=== PATIENT | male | born 1980 | race Two or more races ===

== ENCOUNTER 2018-03-30 08:44 | Inpatient (IN) | payer OTHER ==
[2018-03-30 09:28] VITALS: BMI 31.1
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
[2018-03-30] MEDS ORDERED: MAGNESIUM CITRATE 300 ML BOTTLE PO PRN (12:07)
[2018-03-30] MEDS ORDERED: P-EPHED 60MG/TRIPROLIDI 2.5MG TABLET PO PRN (12:07)
[2018-03-30] MEDS ORDERED: NICOTINE POLACRILEX 2 MG GUM BC PRN (12:07)
[2018-03-30] MEDS ORDERED: LOPERAMIDE HCL 2 MG CAPSULE PO PRN (12:07)
[2018-03-30] MEDS ORDERED: chlordiazePOXIDE HCL 25 MG CAPSULE PO PRN (12:07)
[2018-03-30] MEDS ORDERED: ACETAMINOPHEN 325 MG TABLET (FP) PO PRN (12:07)
[2018-03-30] MEDS ORDERED: MAG HYDROX/AL HYDROX/SIMETH 30 ML UNIT-DOSE CUP PO PRN (12:07)
[2018-03-30] MEDS ORDERED: MAGNESIUM HYDROX 2400MG/30ML ORAL SUSPENSION 30 ML CUP PO PRN (12:07)
[2018-03-30] MEDS ORDERED: MENTHOL/PHENOL 1 EACH UD MM PRN (12:07)
[2018-03-30] MEDS ORDERED: guaiFENesin/D-METHORPHAN HB 10 ML UNIT-DOSE CUPS PO PRN (12:07)
[2018-03-30] MEDS: RANITIDINE HCL 150 MG TABLET (FP) PO SCH ×2 (13:26→22:04)
[2018-03-30] MEDS: NICOTINE 14 MG/24 HOURS TOPICAL PATCH TD SCH (13:26)
[2018-03-30 14:29] LABS: URINE APPEARANCE CLEAR; URINE BILIRUBIN NEGATIVE (<2.0 mg/dL); URINE COLOR YELLOW; URINE GLUCOSE (UA) NEGATIVE (NEGATIVE); URINE KETONE 1+ (NEGATIVE); URINE LEUK ESTERASE NEGATIVE (NEGATIVE); URINE NITRITE NEGATIVE (NEGATIVE); URINE PROTEIN NEGATIVE (NEGATIVE); URINE UROBILINOGEN NEGATIVE mg/dL (0.2-1.0)
[2018-03-30] MEDS: chlordiazePOXIDE HCL 25 MG CAPSULE PO SCH ×2 (18:22→22:04)
[2018-03-30] MEDS: THIAMINE HCL 100 MG TABLET (FP) PO SCH (22:04)
[2018-03-30] MEDS: MELATONIN 5 MG TABLETS PO PRN (22:05)
[2018-03-31] MEDS: chlordiazePOXIDE HCL 25 MG CAPSULE PO SCH ×4 (06:13→22:08)
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
[2018-03-31 10:14] LABS: HEMOGLOBIN 11.5 GM/dL (11.7-16.9); MCH 25.7 pg (25.7-33.7); MCHC 32.8 g/dl (32.0-35.9); MEAN CELL VOLUME 78.3 fl (80-96); MEAN PLT VOLUME 9.8 fl (7.5-11.1); PLATELET COUNT 204 K/MM3 (134-434); RBC 4.48 M/mm3 (4.00-5.60); RDW 15.8 % (11.9-15.9); WHITE BLOOD COUNT 9.2 K/mm3 (4.0-10.0)
[2018-03-31] MEDS: RANITIDINE HCL 150 MG TABLET (FP) PO SCH ×2 (10:40→22:08)
[2018-03-31] MEDS: PRENATAL VITAMINS W/ FOLIC ACID TABLET (FP) PO SCH (10:40)
[2018-03-31] MEDS: NICOTINE 14 MG/24 HOURS TOPICAL PATCH TD SCH (10:41)
[2018-03-31] MEDS: risperiDONE 1 MG TABLET (FP) PO SCH ×2 (10:41→22:08)
--- NOTE | 2018-03-31 10:43 | PN ---
[facility] CIWA - CIWA Score Nausea/Vomitin-No Nausea/No Vomiting Muscle Tremors: 4-Moderate,w/Arms Extend Anxiety: 4-Mod. Anxious/Guarded Agitation: 4-Moderately Restless Paroxysmal Sweats: 1-Minimal Palms Moist Orientation: 0-Oriented Tacttile Disturbances: 0-None Auditory Disturbances: 0-None Visual Disturbances: 0-None Headache: 0-None Present CIWA-Ar Total Score: 13 S Progress Note (SOAP) Subjective: ANXIETY,FATIGUE. Objective: 03/31/18 10:42 Vital Signs 03/31/18 03/31/18 03/31/18 03:30 06:35 09:43 Temperature 97.2 F L 97.0 F L Pulse Rate 67 72 Respiratory 18 18 20 Rate Blood Pressure 100/68 118/74 Laboratory Tests 03/30/18 03/30/18 03/31/18 13:00 13:00 06:00 WBC 9.2 RBC 4.48 Hgb 11.5 L Hct 35.0 L MCV 78.3 L MCH 25.7 MCHC 32.8 RDW 15.8 Plt Count 204 MPV 9.8 Urine Color Yellow Urine Appearance Clear Urine pH 5.0 Ur Specific [place] 1.028 Urine Protein Negative Urine Glucose (UA) Negative Urine Ketones 1+ H Urine Blood Negative Urine Nitrite Negative Urine Bilirubin Negative Urine Urobilinogen Negative Ur Leukocyte Esterase Negative HIV 1&2 Antibody Screen Negative HIV P24 Antigen Negative OTHER LABS PENDING Assessment: 03/31/18 10:42 WITHDRAWAL SX Plan: CONTINUE DETOX
[2018-03-31 10:51] LABS: CHLORIDE 105 mmol/L (98-107); POTASSIUM 3.9 mmol/L (3.5-5.1); SODIUM 139 mmol/L (136-145)
[2018-03-31 11:17] LABS: ALK PHOS 84 U/L (45-117); ANION GAP 9 (8-16); BILIRUBIN,TOTAL 0.6 mg/dL (0.2-1.0); BLOOD UREA NITROGEN 18 mg/dL (7-18); CALCIUM 8.9 mg/dL (8.5-10.1); CO2 25 mmol/L (21-32); CREATININE 1.1 mg/dL (0.7-1.3); GLUCOSE,RANDOM 83 mg/dL (74-106); SGOT/AST 21 U/L (15-37); SGPT/ALT 24 U/L (12-78); TOT PROT 7.8 g/dl (6.4-8.2)
[2018-03-31] MEDS ORDERED: PNEUMOCOCCAL 23 VACCINE 0.5 ML VIAL IM ONE (12:00)
[2018-03-31] MEDS ORDERED: PNEUMOC 13-VAL CONJ-DIP CRM/PF 0.5 ML DISP.SYRIN IM ONE (12:00)
--- NOTE | 2018-03-31 14:27 | EKG ---
Test Reason : Blood Pressure : / mmHG Vent. Rate : 079 BPM Atrial Rate : 079 BPM P-R Int : 170 ms QRS Dur : 084 ms QT Int : 396 ms P-R-T Axes : 074 058 054 degrees QTc Int : 454 ms POOR DATA QUALITY, INTERPRETATION MAY BE ADVERSELY AFFECTED NORMAL SINUS RHYTHM NORMAL ECG NO PREVIOUS ECGS AVAILABLE Confirmed by SHEA JOHNSON MD ([id number]) on 03/31/2018 2:27:22 PM Referred By: Confirmed By:SHEA JOHNSON MD
[2018-03-31] MEDS: THIAMINE HCL 100 MG TABLET (FP) PO SCH (22:07)
[2018-03-31] MEDS: BENZTROPINE MESYLATE 1 MG TABLET (FP) PO SCH (22:08)
[2018-03-31] MEDS: traZODone HCL 50 MG TABLET (FP) PO SCH (22:08)
[2018-03-31] MEDS: DIVALPROEX SODIUM 500 MG TABLET E.C. PO SCH (22:08)
[2018-04-01] MEDS: chlordiazePOXIDE HCL 25 MG CAPSULE PO SCH ×2 (06:27→11:39)
[2018-04-01] MEDS: PRENATAL VITAMINS W/ FOLIC ACID TABLET (FP) PO SCH (11:39)
[2018-04-01] MEDS: RANITIDINE HCL 150 MG TABLET (FP) PO SCH ×2 (11:39→22:11)
[2018-04-01] MEDS: risperiDONE 1 MG TABLET (FP) PO SCH ×2 (11:39→22:11)
[2018-04-01] MEDS: NICOTINE 14 MG/24 HOURS TOPICAL PATCH TD SCH (11:39)
--- NOTE | 2018-04-01 11:43 | PN ---
S CIWA - CIWA Score Nausea/Vomitin-No Nausea/No Vomiting Muscle Tremors: 3 Anxiety: 4-Mod. Anxious/Guarded Agitation: 3 Paroxysmal Sweats: 1-Minimal Palms Moist Orientation: 0-Oriented Tacttile Disturbances: 0-None Auditory Disturbances: 0-None Visual Disturbances: 0-None Headache: 0-None Present CIWA-Ar Total Score: 11 BHS Progress Note (SOAP) Subjective: DECREASED ANXIETY,TREMORS,SWEATS. DETOX PROCEEDING PER PROTOCOL. Objective: 04/01/18 11:43 Vital Signs 04/01/18 04/01/18 06:16 09:08 Temperature 97.7 F 96.9 F L Pulse Rate 59 L 64 Respiratory 18 16 Rate Blood Pressure 101/57 96/90 Laboratory Tests 03/30/18 03/30/18 03/31/18 13:00 13:00 06:00 WBC 9.2 RBC 4.48 Hgb 11.5 L Hct 35.0 L MCV 78.3 L MCH 25.7 MCHC 32.8 RDW 15.8 Plt Count 204 MPV 9.8 Sodium Potassium Chloride Carbon Dioxide Anion Gap BUN Creatinine Creat Clearance w eGFR Random Glucose Calcium Total Bilirubin AST ALT Alkaline Phosphatase Total Protein Albumin Urine Color Yellow Urine Appearance Clear Urine pH 5.0 Ur Specific [place] 1.028 Urine Protein Negative Urine Glucose (UA) Negative Urine Ketones 1+ H Urine Blood Negative Urine Nitrite Negative Urine Bilirubin Negative Urine Urobilinogen Negative Ur Leukocyte Esterase Negative RPR Titer HIV 1&2 Antibody Screen Negative HIV P24 Antigen Negative 03/31/18 03/31/18 06:00 06:00 WBC RBC Hgb Hct MCV MCH MCHC RDW Plt Count MPV Sodium 139 Potassium 3.9 Chloride 105 Carbon Dioxide 25 Anion Gap 9 BUN 18 Creatinine 1.1 Creat Clearance w eGFR > 60 Random Glucose 83 Calcium 8.9 Total Bilirubin 0.6 AST 21 ALT 24 Alkaline Phosphatase 84 Total Protein 7.8 Albumin 4.0 Urine Color Urine Appearance Urine pH Ur Specific [place] Urine Protein Urine Glucose (UA) Urine Ketones Urine Blood Urine Nitrite Urine Bilirubin Urine Urobilinogen Ur Leukocyte Esterase RPR Titer Nonreactive HIV 1&2 Antibody Screen HIV P24 Antigen Assessment: 04/01/18 11:43 WITHDRAWAL SX Plan: CONTINUE DETOX
[2018-04-01] MEDS: chlordiazePOXIDE 5 MG CAPSULE PO SCH ×2 (17:27→22:11)
[2018-04-01] MEDS: BENZTROPINE MESYLATE 1 MG TABLET (FP) PO SCH (22:11)
[2018-04-01] MEDS: traZODone HCL 50 MG TABLET (FP) PO SCH (22:11)
[2018-04-01] MEDS: THIAMINE HCL 100 MG TABLET (FP) PO SCH (22:11)
[2018-04-01] MEDS: DIVALPROEX SODIUM 500 MG TABLET E.C. PO SCH (22:11)
[2018-04-02] MEDS: chlordiazePOXIDE 5 MG CAPSULE PO SCH ×2 (05:49→11:14)
--- NOTE | 2018-04-02 10:22 | PN ---
[facility] Progress Note Note: Psychiatry Attending's note : Called to issue scripts. Discharge imminent. Chart reviewed. cable swager Adela's note : appreciated. Met with patient to discuss informed consent. Labs revisited.Medicated are well tolerated. Mr Powell is made aware of side-effects. In particular : Priapism,abnormal involuntary movements,anemia blood dyscrasias,sexual dysfunction,gynecomastia galactorrhea,dyskinesias,blurred vision,constipation urinary hesitancy,weight gain,hair loss and liver dysfunction. Benefits revisited with the patient as well.Consent (verbal) : given. Scripts are electronically sent to [facility] for : Depakote 500 mg po hs Risperdal 1 mg po bid Cogentin 1 mg po hs Trazodone 50 mg po hs Noted VA level = >3.0 Normal CBC,LFTS. Patient is at his baseline.
[2018-04-02] MEDS: RANITIDINE HCL 150 MG TABLET (FP) PO SCH ×2 (11:14→22:22)
[2018-04-02] MEDS: NICOTINE 14 MG/24 HOURS TOPICAL PATCH TD SCH (11:14)
[2018-04-02] MEDS: risperiDONE 1 MG TABLET (FP) PO SCH ×2 (11:14→22:23)
[2018-04-02] MEDS: PRENATAL VITAMINS W/ FOLIC ACID TABLET (FP) PO SCH (11:14)
--- NOTE | 2018-04-02 17:07 | PN ---
BHS Progress Note (SOAP) Subjective: Fatigue, Anxious. Objective: PATIENT A & O X 3. NO ACUTE DISTRESS. 04/02/18 17:06 Vital Signs Temperature 97.5 F L 04/02/18 14:43 Pulse Rate 78 04/02/18 14:43 Respiratory Rate 18 04/02/18 14:43 Blood Pressure 112/73 04/02/18 14:43 O2 Sat by Pulse Oximetry (%) Laboratory Tests 03/30/18 03/30/18 03/31/18 13:00 13:00 06:00 WBC 9.2 RBC 4.48 Hgb 11.5 L Hct 35.0 L MCV 78.3 L MCH 25.7 MCHC 32.8 RDW 15.8 Plt Count 204 MPV 9.8 Sodium Potassium Chloride Carbon Dioxide Anion Gap BUN Creatinine Creat Clearance w eGFR Random Glucose Calcium Total Bilirubin AST ALT Alkaline Phosphatase Total Protein Albumin Urine Color Yellow Urine Appearance Clear Urine pH 5.0 Ur Specific [place] 1.028 Urine Protein Negative Urine Glucose (UA) Negative Urine Ketones 1+ H Urine Blood Negative Urine Nitrite Negative Urine Bilirubin Negative Urine Urobilinogen Negative Ur Leukocyte Esterase Negative Valproic Acid RPR Titer HIV 1&2 Antibody Screen Negative HIV P24 Antigen Negative 03/31/18 03/31/18 04/01/18 06:00 06:00 06:00 WBC RBC Hgb Hct MCV MCH MCHC RDW Plt Count MPV Sodium 139 Potassium 3.9 Chloride 105 Carbon Dioxide 25 Anion Gap 9 BUN 18 Creatinine 1.1 Creat Clearance w eGFR > 60 Random Glucose 83 Calcium 8.9 Total Bilirubin 0.6 AST 21 ALT 24 Alkaline Phosphatase 84 Total Protein 7.8 Albumin 4.0 Urine Color Urine Appearance Urine pH Ur Specific [place] Urine Protein Urine Glucose (UA) Urine Ketones Urine Blood Urine Nitrite Urine Bilirubin Urine Urobilinogen Ur Leukocyte Esterase Valproic Acid < 3.0 L RPR Titer Nonreactive HIV 1&2 Antibody Screen HIV P24 Antigen LABS NOTED. Assessment: 04/02/18 17:06 WITHDRAWAL SYMPTOMS. Plan: CONTINUE DETOX.
[2018-04-02] MEDS: chlordiazePOXIDE HCL 10 MG CAPSULE PO SCH ×2 (17:15→22:22)
[2018-04-02] MEDS: DIVALPROEX SODIUM 500 MG TABLET E.C. PO SCH (22:22)
[2018-04-02] MEDS: THIAMINE HCL 100 MG TABLET (FP) PO SCH (22:22)
[2018-04-02] MEDS: BENZTROPINE MESYLATE 1 MG TABLET (FP) PO SCH (22:22)
[2018-04-02] MEDS: traZODone HCL 50 MG TABLET (FP) PO SCH (22:23)
[2018-04-02] MEDS: MELATONIN 5 MG TABLETS PO PRN (22:25)
[2018-04-03] MEDS: chlordiazePOXIDE HCL 10 MG CAPSULE PO SCH (05:21)
[2018-04-03 07:00] VITALS: BP 98/52; PULSE 64; TEMP 97.5
--- NOTE | 2018-04-03 08:47 | PN ---
BHS Progress Note (SOAP) Subjective: pt without complaints- going to rehab today Objective: 04/03/18 08:46 CBC, BMP 03/31/18 06:00 03/31/18 06:00 Vital Signs 04/03/18 04/03/18 04/03/18 03:30 06:30 06:59 Temperature 97.5 F L Pulse Rate 64 Respiratory 18 18 18 Rate Blood Pressure 98/52 ambulatory, nl VS Assessment: 04/03/18 08:46 s/p detox Plan: d/c to rehab today
--- NOTE | 2018-04-03 08:49 | DS ---
[facility] Detox Discharge Summary Admission Date: 03/30/18 Discharge Date: 04/03/18 - History Additional Comments: pt doing well after rehab - Physical Exam Results Vital Signs: Vital Signs Temperature 97.5 F L 04/03/18 06:59 Pulse Rate 64 04/03/18 06:59 Respiratory Rate 18 04/03/18 06:59 Blood Pressure 98/52 04/03/18 06:59 O2 Sat by Pulse Oximetry (%) Pertinent Admission Physical Exam Findings: pt here - Medication Discharge Medications: Ambulatory Orders Benztropine Mesylate [Cogentin -] 1 mg PO HS 03/31/18 Divalproex [Depakote -] 500 mg PO HS 03/31/18 Risperidone [Risperdal] 1 mg PO BID 03/31/18 Trazodone HCl 50 mg PO HS 03/31/18 Benztropine Mesylate [Cogentin -] 1 mg PO HS #30 tablet 04/02/18 Divalproex [Depakote -] 500 mg PO HS #30 tablet.ec 04/02/18 Risperidone [Risperdal] 1 mg PO BID #60 tablet 04/02/18 Trazodone HCl 50 mg PO HS #30 tablet 04/02/18
== END 2018-04-03 09:05 | disposition home or self-care (01) | DRG 774 ==
LOC: YASAS 08:44 → Y3N 12:06
PROVIDERS: ADMIT Surgery; ATTEND Surgery
PROC: HZ2ZZZZ Detoxification Services for Substance Abuse Treatment (ICD-10-PCS; principal; 2018-03-30)
DX: F10.230 Alcohol dependence with withdrawal, uncomplicated (principal); F14.20 Cocaine dependence, uncomplicated; F12.20 Cannabis dependence, uncomplicated; F17.213 Nicotine dependence, cigarettes, with withdrawal; F19.24 Other psychoactive substance dependence with psychoactive substance-induced mood disorder; F25.9 Schizoaffective disorder, unspecified; R76.11 Nonspecific reaction to tuberculin skin test without active tuberculosis; K63.3 Ulcer of intestine; K27.7 Chronic peptic ulcer, site unspecified, without hemorrhage or perforation
CPT/HCPCS: 36415; 71046-TC-FY; 80053; 80164; 81003; 85027; 86593; 87389; 90732; 93005; 93010; G0009; J2794